=== PATIENT | male | born 1950 | race Caucasian/White ===

== ENCOUNTER → 2021-03-27 | Outpatient (CLI) | payer OTHER | LOC: CAT 09:12 | PROVIDERS: ATTEND Family Medicine | DX: Z13.6 Encounter for screening for cardiovascular disorders (principal); E78.00 Pure hypercholesterolemia, unspecified; I25.10 Atherosclerotic heart disease of native coronary artery without angina pectoris ==

== ENCOUNTER → 2021-04-24 | Outpatient (CLI) | payer OTHER | LOC: ULTRA 08:41 | PROVIDERS: ATTEND Family Medicine | DX: I77.819 Aortic ectasia, unspecified site (principal) ==